=== PATIENT | male | born 1970 | race Caucasian/White ===

== ENCOUNTER 2020-08-06 02:09 | Emergency (ER) | payer BC ==
[2020-08-06 02:13] VITALS: BP 138/84; PULSE 107
[2020-08-06 02:47] LABS: CHLORIDE,CL 102 mmol/L (98-107); SODIUM,NA 137 mmol/L (136-145)
[2020-08-06] MEDS ORDERED: Amoxicillin/Clavulanate K 875-125 MG Tab PO ONE (03:06)
--- NOTE | 2020-08-06 03:12 | EDM.PDOC ---
ED HPI GENERAL MEDICAL PROBLEM - General Chief Complaint: ENT Problem Stated Complaint: pain in left ear Time Seen by Provider: 08/06/20 02:30 Source of Information: Reports: Patient History Limitations: Reports: No Limitations - History of Present Illness INITIAL COMMENTS - FREE TEXT/NARRATIVE: swelling below left ear. Tender. Developed over last 24 hours. Has had cold symptoms for two weeks. Received inhaler for cough when he visited clinic. No fevers/chills. No other acute changes. Had some ear pain on/off with the cold on that side. Left Ear Pain Score (Numeric/FACES): 5 - Related Data Allergies Allergy/AdvReac Type Severity Reaction Status Date / Time No Known Drug Allergies Allergy Cannot Verified 11/18/16 07:18 Remember Home Meds: Home Meds Lisinopril 20 mg PO DAILY 08/16/16 [History] Albuterol [Ventolin HFA] 2 puff INH Q4HR PRN 08/06/20 [History] Amoxicillin/Clavulanate K [Augmentin 875-125 MG] 1 tab PO BID #14 tablet 08/06/20 [Rx] Benzonatate [Tessalon Perle] 100 mg PO ASDIRECTED PRN #40 capsule 08/06/20 [Rx] atorvaSTATin [Lipitor] 10 mg PO DAILY 08/06/20 [History] Past Medical History Cardiovascular History: Reports: Hypertension Genitourinary History: Reports: Renal Calculus Musculoskeletal History: Reports: Arthritis, Back Pain, Chronic Neurological History: Reports: Concussion, Vertigo - Past Surgical History Head Surgeries/Procedures: Reports: None HEENT Surgical History: Reports: Oral Surgery Cardiovascular Surgical History: Reports: None Neurological Surgical History: Reports: None Musculoskeletal Surgical History: Reports: None Dermatological Surgical History: Reports: None Social & Family History - Family History Family Medical History: No Pertinent Family History - Tobacco Use Tobacco Use Status *Q: Current Every Day Tobacco User Years of Tobacco use: 30 Packs/Tins Daily: 1 - Caffeine Use Caffeine Use: Reports: None - Alcohol Use Days Per Week of Alcohol Use: 1 Number of Drinks Per Day: 7 Total Drinks Per Week: 7 - Recreational Drug Use Recreational Drug Use: No ED ROS GENERAL - Review of Systems Review Of Systems: Comprehensive ROS is negative, except as noted in HPI. ED EXAM, GENERAL - Physical Exam Exam: See Below Exam Limited By: No Limitations General Appearance: Alert, WD/WN, No Apparent Distress Eye Exam: Bilateral Eye: EOMI, PERRL Ears: Normal External Exam, Normal Canal, Hearing Grossly Normal, Normal TMs Ear Exam: Right Ear: Other (mild swelling noted just under left earlobe lateral neck. Tender with palpation. No redness/increased warmth noted. ) Nose: No: Nasal Deformity, Nasal Swelling, Nasal Drainage Throat/Mouth: Normal Lips, Normal Oropharynx, Normal Voice, No Airway Compromise Head: Atraumatic, Normocephalic Neck: Supple, Other (see above/ear exam). No: Lymphadenopathy (L), Lymphadenopathy (R) Respiratory/Chest: No Respiratory Distress, Lungs Clear, Normal Breath Sounds, No Accessory Muscle Use Cardiovascular: Regular Rate, Rhythm, No Murmur GI/Abdominal: Soft, Non-Tender Back Exam: No: CVA Tenderness (L), CVA Tenderness (R), Muscle Spasm Extremities: Normal Capillary Refill Neurological: Alert, Oriented, Normal Cognition, No Motor/Sensory Deficits Psychiatric: Normal Affect, Normal Mood Skin Exam: Warm, Dry, Intact, Normal Color Course - Vital Signs Last Recorded V/S: Last Vital Signs Temp 36.3 C 08/06/20 02:10 Pulse 107 H 08/06/20 02:10 Resp 14 08/06/20 02:10 BP 138/84 08/06/20 02:10 Pulse Ox 98 08/06/20 02:10 - Orders/Labs/Meds Orders: Active Orders 24 hr Category Date Time Status CXR [Chest 2V] [CR] Stat Exams 08/06/20 02:15 Taken Labs: Laboratory Tests 08/06/20 08/06/20 Range/Units 02:28 02:28 WBC 9.0 (4.0-10.2) K/uL RBC 4.65 (4.33-5.41) M/uL Hgb 15.1 (13.1-16.8) g/dL Hct 44.2 (39.0-49.0) % MCV 95.1 (84.0-98.0) fL MCH 32.5 (28.2-33.3) pg MCHC 34.2 (31.7-36.0) g/dL RDW 13.9 (11.2-14.1) % Plt Count 329 (150-350) K/uL Neut % (Auto) 62.1 (45.0-80.0) % Lymph % (Auto) 22.7 (10.0-50.0) % [place] % (Auto) 12.0 (2.0-14.0) % Eos % (Auto) 2.3 (0.0-5.0) % Baso % (Auto) 0.9 (0.0-2.0) % Neut # (Auto) 5.60 (1.40-7.00) K/uL Lymph # (Auto) 2.05 (0.50-3.50) K/uL [place] # (Auto) 1.08 H (0.00-1.00) K/uL Eos # (Auto) 0.21 (0.00-0.50) K/uL Baso # (Auto) 0.08 (0.00-0.20) K/uL Sodium 137 (136-145) mmol/L Potassium 4.2 (3.5-5.1) mmol/L Chloride 102 (98-107) mmol/L Carbon Dioxide 24.9 (21.0-32.0) mmol/L BUN 32 H (7-18) mg/dL Creatinine 1.23 H (0.51-1.17) mg/dL Est Cr Clr Drug Dosing 70.28 mL/min Estimated GFR (MDRD) > 60 mL/min Glucose 149 H (70-99) mg/dL Calcium 9.2 (8.5-10.1) mg/dL Total Bilirubin 0.5 (0.2-1.0) mg/dL AST 20 (15-37) U/L ALT 48 (12-78) U/L Alkaline Phosphatase 106 (46-116) IU/L Total Protein 7.5 (6.4-8.2) g/dL Albumin 3.5 (3.4-5.0) g/dL Meds: Medications Discontinued Medications Generic Name Dose Route Start Last Admin Trade Name Freq PRN Reason Stop Dose Admin Amoxicillin/Clavulanate Potassium 1 tab 08/06/20 03:06 08/06/20 03:11 Amoxicillin/Clavulanate K 875-125 Mg Tab PO 08/06/20 03:07 1 tab ONETIME ONE Administration - Re-Assessments/Exams Free Text/Narrative Re-Assessment/Exam: 08/06/20 03:23 Xray did not appear to show focal infiltrate. WBC normal. Mild increase Bun/Cr. [facility] Uncertain as to specific cause of the swelling under the ear. Normal TM. Does not feel consistent with swollen lymph node. Rx for Augmentin dispensed to patient. First dose given in ER. Precautions reviewed. To follow up for recheck if swelling gets significantly worse or no resolution is seen with antibiotic coverage. Departure - Departure Time of Disposition: 03:06 Disposition: Home, Self-Care 01 Condition: Good Clinical Impression: Swelling, mass, or lump on face - Discharge Information *PRESCRIPTION DRUG MONITORING PROGRAM REVIEWED*: Not Applicable *COPY OF PRESCRIPTION DRUG MONITORING REPORT IN PATIENT ANGELO: Not Applicable Prescriptions: Amoxicillin/Clavulanate K [Augmentin 875-125 MG] 1 tab PO BID #14 tablet Benzonatate [Tessalon Perle] 100 mg PO ASDIRECTED PRN #40 capsule PRN Reason: Cough Referrals: PCP,Unknown [Primary Care Provider] - Forms: ED Department Discharge Additional Instructions: Watch for additional changes. Return for recheck if swelling continues to worsen despite antibiotics. Sepsis Event Note (ED) - Evaluation Sepsis Screening Result: No Definite Risk - Focused Exam Vital Signs: Vital Signs Temp Pulse Resp BP Pulse Ox 08/06/20 02:10 36.3 C 107 H 14 138/84 98 - My Orders Last 24 Hours: My Active Orders 08/06/20 02:15 CXR [Chest 2V] [CR] Stat - Assessment/Plan Last 24 Hours: My Active Orders 08/06/20 02:15 CXR [Chest 2V] [CR] Stat
== END 2020-08-06 03:30 | disposition home or self-care (01) ==
LOC: LL.ED 02:09
DX: R22.0 Localized swelling, mass and lump, head (principal); I10 Essential (primary) hypertension; Z79.899 Other long term (current) drug therapy; Z72.0 Tobacco use
CPT/HCPCS: 36415; 71046; 80053; 85025; 99283; 99283-25; A9270-GY